=== PATIENT | male | born 1945 | race Caucasian/White ===

== ENCOUNTER 2017-04-14 10:29 | Day surgery (SDC) | payer OTHER, MEDICARE ==
[2017-04-14] VITALS (7 sets, daily range): BP systolic 110–144; BP diastolic 63–84; PULSE 16–74; TEMP 97.7–98.1
[~2017-04-14] VITALS: Ht 177.8 cm; Wt 85.5 kg
[2017-04-14] MEDS ORDERED: FLOMAX 0.40.4 MG/CAP PO (11:22)
[2017-04-14] MEDS ORDERED: DOXYCYCLINE HY100 MG PO (11:22)
== END 2017-04-14 16:52 | disposition home or self-care (01) ==
LOC: SDCO 10:29
DX: K40.90 Unilateral inguinal hernia, without obstruction or gangrene, not specified as recurrent (principal); N41.9 Inflammatory disease of prostate, unspecified
CPT/HCPCS: A4314; C1781; J0690; J1100; J1885; J2405; J2704; J2710; J3010; J7120

== ENCOUNTER 2019-05-20 07:30 | Outpatient (RCR) | payer OTHER, MEDICARE ==
[~2019-05-20 07:30] MED LIST: DOXYCYCLINE HY100 MG PO; FLOMAX 0.40.4 MG/CAP PO
== END 2019-06-16 08:05 | disposition home or self-care (01) ==
LOC: WSC 07:30
DX: M75.81 Other shoulder lesions, right shoulder (principal)

== ENCOUNTER → 2020-09-15 | Outpatient (CLI) | payer OTHER | LOC: COL.RAD 13:26 | DX: M48.54XA Collapsed vertebra, not elsewhere classified, thoracic region, initial encounter for fracture (principal) ==

== ENCOUNTER → 2023-05-19 | Outpatient (CLI) | payer OTHER ==
[~2023-05-19] VITALS: Ht 177.8 cm; Wt 91.3 kg
[~2023-05-19] MED LIST changes: +ADVIL200 MG PO; +CENTRUM SILVER1 CTB PO; +HYZAAR 25 MG-101 TAB PO; +MASON NATURAL2000 IU PO; +Regadenoson 0.08 MG/ML 5 ML SYRINGE IV SCH
[2023-05-19 09:06] VITALS: BP 170/97; PULSE 68; TEMP 97.8
[2023-05-19 10:38] VITALS: BP 150/92; PULSE 74
[2023-05-19 10:39] VITALS: BP 147/71; PULSE 74
[2023-05-19 10:40] VITALS: BP 154/85; PULSE 78
[2023-05-19 10:41] VITALS: BP 158/83; PULSE 73
== END ==
LOC: COL.RAD 08:21
DX: I10 Essential (primary) hypertension (principal); R68.89 Other general symptoms and signs
CPT/HCPCS: A9500-JZ; J2785